=== PATIENT | female | born 1950 | race Caucasian/White ===

== ENCOUNTER → 2016-08-28 | Outpatient (CLI) | payer OTHER ==
[~2016-08-28] MED LIST: ALBUTEROL17 GM INH; ATIVAN PO; BACTRIM DS TABL1 TA2 PO; CLARITIN10 M3 PO; CLONIDINE TOP; COZAAR100 MG PO; CRESTOR PO; DARVOCET-N 1001 TAB PO; FLEXERIL PO; FLONASE16 GM; HCTZ PO; HYCODAN60 ML 5MG/ PO; HYDRALAZINE HCL50 MG PO; HYDROCODON-ACE1 EAC5 PO; KCL PO; LASIX PO; LISINOPRIL PO; LOPID600 MG PO; LOPRESSOR PO; LOPRESSOR100 MG PO; LOPRESSOR5 MG/5 M1; PEN-VEE K PO; PHENERGAN DM1 ML PO; PREDNISONE PO; PREMARIN PO; PRILOSEC PO; ROBITUSSIN100 MG/51 PO; VICODIN 5/500 T1 TAB PO; VOLTAREN75 MG PO; XANAX PO; XANAX1 MG PO; ZITHROMAX PO
--- NOTE | ~2016-08-28 | MY11 ---
[facility] RADIOLOGY TEXT RESULTS PATIENT: AYESHA SOLOMON LOCATION: [facility] : 50 UNIT #: [id number] AGE: [address]: DEYSI MAST SEX: F ORDER DR: [id number] [address] [address] [id number] O MR#: [id number] Acc #: [id number] NAME: AYESHA SOLOMON : 1950 SEX: F STUDY DATE/TIME: 08/28/2016 9:50 UNIT: [facility] ROOM: STUDY DESCRIPTION: MY Mammogram Screening [facility] [place] Attending Physician: Deysi Mast M.D. Referring Physician: Deysi Mast M.D. Ordering Physician: Physician Non-Staff Primary Care Physician: Deysi Mast M.D. MEDICAL IMAGING REPORT This report is preliminary unless electronic signature is present. EXAM Digital screening mammogram 08/28/2016 [facility] HISTORY 66-year-old woman, no risk elevation. History of left breast biopsies for cyst. Given history, suggest recurrent sebaceous cyst with given history of infection on right side. Annual screen. COMPARISON Mammograms date to 04/08/2004 with followup 12/29/2010 and 10/15/2014. FINDINGS Digital imaging of each breast was completed utilizing a two-view examination of each breast in craniocaudal and mediolateral-oblique projections. Review and interpretation of digital mammograms include a second review in conjunction with FDA-approved CAD device. There is a normal parenchymal presentation bilaterally consistent with the patient's age. There are no breast masses imaged and no parenchymal asymmetry is visualized. There are no suspicious microcalcifications and I see no focal architectural disturbance. IMPRESSION Negative screening digital mammogram. One-year followup recommended. Patients over the age of 40 are entered into a reminder system with target due date for the next mammogram. A result letter will also be sent to the patient. BIRADS: 1 Negative Dictated by... [facility] A Service [facility] RADIOLOGY TEXT RESULTS PATIENT: AYESHA SOLOMON [id number] : 50 UNIT #: [id number] AGE: [address]: DEYSI MAST SEX: F ORDER DR: Elmo Sol M.D. THIS IS AN ELECTRONICALLY VERIFIED REPORT Elmo Sol M.D. at 08/28/2016 3:31 PM JBB/samantha TD: 08/28/2016 14:32 JOB #: [id number] MEDICAL IMAGING REPORT Page 1 of 1
== END | disposition home or self-care (01) ==
LOC: SMAM 09:14
DX: Z12.31 Encounter for screening mammogram for malignant neoplasm of breast (principal); Z98.890 Other specified postprocedural states
CPT/HCPCS: G0202